=== PATIENT | male | born 1965 | race Caucasian/White ===

== ENCOUNTER 2017-09-01 13:21 | Emergency (ER) | payer OTHER ==
--- NOTE | 2017-09-01 13:57 | EDM.PDOC ---
ED HPI GENERAL MEDICAL PROBLEM - General Chief Complaint: Upper Extremity Injury/Pain Stated Complaint: L MIDDLE FINGER LACERATION Time Seen by Provider: 09/01/17 13:49 Source of Information: Reports: Patient History Limitations: Reports: No Limitations - History of Present Illness INITIAL COMMENTS - FREE TEXT/NARRATIVE: pt was stacking wood with a friend and got is middle finger caught between 2 pieces of wood. He has a burst type laceration in the farah aspect of the third left finger. The finger went numb immediately. This has since improved. Onset: Today, Sudden Duration: Hour(s): Location: Reports: Upper Extremity, Left Associated Symptoms: Reports: No Other Symptoms Left 3-Middle finger Pain Score (Numeric/FACES): 4 - Related Data Allergies Allergy/AdvReac Type Severity Reaction Status Date / Time No Known Allergies Allergy Verified 09/01/17 13:33 Home Meds: Home Meds Aspirin 81 mg PO DAILY 09/01/17 [History] Lisinopril 10 mg PO DAILY 09/01/17 [History] Past Medical History Cardiovascular History: Reports: Hypertension, Other (See Below) Other Cardiovascular History: LBBB Social & Family History - Tobacco Use Smoking Status *Q: Never Smoker - Caffeine Use Caffeine Use: Reports: Coffee - Recreational Drug Use Recreational Drug Use: No Review of Systems - Review of Systems Review Of Systems: See Below Constitutional: Reports: No Symptoms Eyes: Reports: No Symptoms Ears: Reports: No Symptoms Nose: Reports: No Symptoms Mouth/Throat: Reports: No Symptoms Respiratory: Reports: No Symptoms Cardiovascular: Reports: No Symptoms GI/Abdominal: Reports: No Symptoms Genitourinary: Reports: No Symptoms Musculoskeletal: Reports: No Symptoms Skin: Reports: No Symptoms ED EXAM, GENERAL - Physical Exam Exam: See Below Free Text/Narrative:: pt arrived with a painful left middle finger. Exam Limited By: No Limitations General Appearance: Alert, Anxious Ears: Normal External Exam Extremities: Other ( middle finger on the left. -- there is a 1/8 inch laceration burst in type. he has blood under his finger nail. A xray was obtained which shoed a undisplaced fracture of the distal phanlax. ) Neurological: Alert, Oriented Course - Vital Signs Last Recorded V/S: Last Vital Signs Temp 36.3 C 09/01/17 13:31 Pulse 68 09/01/17 13:31 Resp 14 09/01/17 13:31 BP 152/86 H 09/01/17 13:31 Pulse Ox 98 09/01/17 13:31 - Orders/Labs/Meds Orders: Active Orders 24 hr Category Date Time Status Fingers Third Digit Lt F2 [CR] Stat Exams 09/01/17 13:44 Taken Meds: Medications Discontinued Medications Generic Name Dose Route Start Last Admin Trade Name Amol PRN Reason Stop Dose Admin Bacitracin 1 dose 09/01/17 14:00 09/01/17 14:04 Bacitracin Oint 1 Gm TOP 09/01/17 14:01 1 dose ONETIME ONE Administration Lidocaine HCl 5 ml 09/01/17 13:59 09/01/17 14:05 Xylocaine-Mpf 1% INJECT 09/01/17 14:00 5 ml ONETIME ONE Administration - Re-Assessments/Exams Free Text/Narrative Re-Assessment/Exam: 09/01/17 14:03 area was cleased well and infiltrated with lidocaine 1 %. He was closed with 5- 0 prolene. The wound was dreased with bacatracin. The blood was released from under the nail. This would be considered a open fractuure so he will be placed on keflex. Departure - Departure Time of Disposition: 14:25 Disposition: Home, Self-Care 01 Condition: Fair Clinical Impression: Finger fracture, right, Laceration, Finger nail contusion - Discharge Information Instructions: Finger Fracture, [id number], Sutured Wound Care Referrals: PCP,None [Primary Care Provider] - Forms: ED Department Discharge Care Plan Goals: norco 5/325 q6h prn for pain, keflex 500mg tid, elevate, cool pack, keep dry, no further ointments, sr in 7-8 days, - My Orders Last 24 Hours: My Active Orders 09/01/17 13:44 Fingers Third Digit Lt F2 [CR] Stat - Assessment/Plan Last 24 Hours: My Active Orders 09/01/17 13:44 Fingers Third Digit Lt F2 [CR] Stat
[2017-09-01] MEDS ORDERED: Bacitracin Oint 1 GM U/D Packet TOP ONE (14:00)
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
== END 2017-09-01 14:39 | disposition home or self-care (01) ==
LOC: JP.ED 13:21
DX: S62.633A Displaced fracture of distal phalanx of left middle finger, initial encounter for closed fracture (principal); S61.313A Laceration without foreign body of left middle finger with damage to nail, initial encounter; I10 Essential (primary) hypertension; Z79.82 Long term (current) use of aspirin; W23.0XXA Caught, crushed, jammed, or pinched between moving objects, initial encounter
CPT/HCPCS: 12001; 73140-26-F2; 73140-F2; 99284-25